=== PATIENT | female | born 1965 | race Caucasian/White ===

== ENCOUNTER 2024-03-19 11:47 | Outpatient (REF) | payer OTHER, SELFPAY ==
--- NOTE | ~2024-03-19 | XR_ITS ---
EXAMINATION: XR ANKLE, RIGHT XR TIB/FIB RIGHT XR FOOT RIGHT . CLINICAL INFORMATION: M25.571 - Pain in right ankle and joints of right foot COMPARISON: None available. TECHNIQUE: AP, lateral, and mortise views of the right ankle. 2 views right foot. 2 views right tibia and fibula. FINDINGS: Oblique fracture of the distal fibular metadiaphysis extending to the level of the syndesmosis. Minimal lateral displacement of the distal fragment. No angulation. The mortise is maintained grossly. Talar dome is normal. Suggestion of a medial malleolar transverse fracture. It is nondisplaced if present. No additional fractures seen. Subtalar joints and calcaneus are intact. Moderate sized plantar and small dorsal calcaneal spurs. The right foot demonstrates mild splaying of the first and second metatarsals without evidence of metatarsal fracture. No foot fractures identified. Tarsal bones are intact and aligned. The more proximal tibia and fibula are intact. No proximal fracture. Soft tissue swelling about the ankle, with ankle joint effusion. XR/XR ankle RT min 3V IMPRESSION: 1. Oblique fracture distal fibula extending into the syndesmotic level. Minimal lateral displacement. No angulation. 2. The mortise appears maintained. The talar dome is normal. 3. Equivocal findings of possible subtle nondisplaced medial malleolar fracture. 4. Plantar and dorsal calcaneal spurs. Electronically signed by: Chapo Herrera MD 03/19/2024 02:21 PM [facility] Workstation: [id number]
--- NOTE | ~2024-03-19 | XR_ITS ---
EXAMINATION: XR ANKLE, RIGHT XR TIB/FIB RIGHT XR FOOT RIGHT . CLINICAL INFORMATION: M25.571 - Pain in right ankle and joints of right foot COMPARISON: None available. TECHNIQUE: AP, lateral, and mortise views of the right ankle. 2 views right foot. 2 views right tibia and fibula. FINDINGS: Oblique fracture of the distal fibular metadiaphysis extending to the level of the syndesmosis. Minimal lateral displacement of the distal fragment. No angulation. The mortise is maintained grossly. Talar dome is normal. Suggestion of a medial malleolar transverse fracture. It is nondisplaced if present. No additional fractures seen. Subtalar joints and calcaneus are intact. Moderate sized plantar and small dorsal calcaneal spurs. The right foot demonstrates mild splaying of the first and second metatarsals without evidence of metatarsal fracture. No foot fractures identified. Tarsal bones are intact and aligned. The more proximal tibia and fibula are intact. No proximal fracture. Soft tissue swelling about the ankle, with ankle joint effusion. XR/XR tibia fibula RT 2V IMPRESSION: 1. Oblique fracture distal fibula extending into the syndesmotic level. Minimal lateral displacement. No angulation. 2. The mortise appears maintained. The talar dome is normal. 3. Equivocal findings of possible subtle nondisplaced medial malleolar fracture. 4. Plantar and dorsal calcaneal spurs. Electronically signed by: Chapo Herrera MD 03/19/2024 02:21 PM [facility]
--- NOTE | ~2024-03-19 | XR_ITS ---
EXAMINATION: XR ANKLE, RIGHT XR TIB/FIB RIGHT XR FOOT RIGHT . CLINICAL INFORMATION: M25.571 - Pain in right ankle and joints of right foot COMPARISON: None available. TECHNIQUE: AP, lateral, and mortise views of the right ankle. 2 views right foot. 2 views right tibia and fibula. FINDINGS: Oblique fracture of the distal fibular metadiaphysis extending to the level of the syndesmosis. Minimal lateral displacement of the distal fragment. No angulation. The mortise is maintained grossly. Talar dome is normal. Suggestion of a medial malleolar transverse fracture. It is nondisplaced if present. No additional fractures seen. Subtalar joints and calcaneus are intact. Moderate sized plantar and small dorsal calcaneal spurs. The right foot demonstrates mild splaying of the first and second metatarsals without evidence of metatarsal fracture. No foot fractures identified. Tarsal bones are intact and aligned. The more proximal tibia and fibula are intact. No proximal fracture. Soft tissue swelling about the ankle, with ankle joint effusion. XR/XR foot RT min 3V IMPRESSION: 1. Oblique fracture distal fibula extending into the syndesmotic level. Minimal lateral displacement. No angulation. 2. The mortise appears maintained. The talar dome is normal. 3. Equivocal findings of possible subtle nondisplaced medial malleolar fracture. 4. Plantar and dorsal calcaneal spurs. Electronically signed by: Chapo Herrera MD 03/19/2024 02:21 PM [facility] Workstation: [id number]
== END 2024-03-19 11:48 | disposition home or self-care (01) ==
LOC: HO.HMGCX 11:47
PROVIDERS: Visit Provider Nurse Practitioner Family
DX: M25.571 Pain in right ankle and joints of right foot (principal); S82.831A Other fracture of upper and lower end of right fibula, initial encounter for closed fracture; S82.54XA Nondisplaced fracture of medial malleolus of right tibia, initial encounter for closed fracture; W00.0XXA Fall on same level due to ice and snow, initial encounter; Y93.01 Activity, walking, marching and hiking; Y92.69 Other specified industrial and construction area as the place of occurrence of the external cause; Y99.0 Civilian activity done for income or pay; Z02.6 Encounter for examination for insurance purposes
CPT/HCPCS: 73590; 73610; 73630; 99212

== ENCOUNTER 2024-03-19 11:47 | Outpatient (AMB) | payer OTHER, SELFPAY ==
--- NOTE | 2024-03-19 12:02 | AM.OFFWIN_ITS ---
Intake Vital Signs 3 03/19/24 12:08 Height 5 ft 3 in BMI Reason not done Patient refused/unable BP 152/82 H Blood Pressure Location Lt brachial Position Sitting Respiration 14 Pulse 83 Pulse Source Pulse Oximeter Temp 98.5 F Temp Source Oral Pulse Oximetry (%) 97 Oxygen Delivery Method Room Air Intake Visit Reasons: right ankle pain from fall at work Intake Note: Patient complaining of right ankle pain and swollen from fall at work last Sunday morning Patient Tobacco Use Status: Never used Tobacco Allergies No Known Allergies Allergy (Verified 03/19/24 12:02) Do you need a note to return to daycare/school/sports/work: Yes HPI HPI Comments 2 History of Present Illness0 Details The patient is a 58-year-old female presenting with injury-related right ankle pain and swelling following a fall. The injury occurred on March 17 when the patient slipped on ice in the parking lot at her workplace, [employer]. She reportedly twisted her right ankle inward and fell onto her left side. She did not hit her head or lose consciousness. Initially, she was able to get up with assistance by using her vehicle's tire and wheel for support. She attempted to continue working, experiencing significant pain which escalated, leading her to leave work after about an hour. Over the following two days, she noticed swelling and persistent pain in the right ankle, unmitigated by ibuprofen. The pain exacerbation was such that it limited her mobility, necessitating assistance with ambulation through furniture support and subsequently a cane, procured by her boyfriend. The current symptoms include swelling without any numbness or tingling, and increased pain when bearing weight on the affected side. It is noted as the patient's first appointment for this injury. Has been wrapping w/ [employer] at home. - Employment: Works at a [employer] company, [employer]. Discussion Notes I discussed the need for an X-ray to rule out any fractures in the foot and ankle due to the significant swelling and pain following the fall. The importance of immobilizing the affected limb was highlighted, and the patient will be fitted with a lace-up brace to facilitate proper alignment during the healing process. I provided instructions on how to wear the brace and emphasized the need to keep the foot in a 90-degree angle. I also discussed the prescription of an anti-inflammatory pain reliever for enhanced pain management, cautioning against combining it with svfx-emd-cahtrut medications. TAke w/ food. The plan includes sending the patient to a facility for X-ray imaging, with results expected within an hour. Should a fracture be detected, follow-up with an orthopedics team in [place] is advised. I explained that if no fracture is found, we will proceed with conservative management for an ankle sprain. Follow-up will be through a phone call to discuss the X-ray results, and a note will be provided to keep the patient out of work temporarily. Plan - Obtain X-ray of the R foot, ankle, and lower leg to evaluate for potential fractures. - Fit the patient with a lace-up ankle b race to stabilize and support the injured area. - Prescribe an anti-inflammatory pain re liever to manage symptoms and reduce swelling. - Discuss the possibility of a referral to an informatics specialist in [place] if imaging confirms a fracture. - Provide a note to limit work activitie s to accommodate recovery requirements and prevent further injury. - Coordinate follow-up communication to discuss diagnostic findings and adjust management plan accordingly. Patient was informed and verbally consented to the use of an ambient scribe for clinic note documentation during this visit. Exam: RLE neurovasc intact, PP WNL, Pain with palpation lateral malleolus generalized aspect of the ankle has pain with weight-bearing and with inversion of the ankle joint. She has no pain with palpation over bones in the foot. Abnormalities in the toe. She does have pain along her tib-fib proximal to the ankle. There is 1 area of ecchymosis as you can see in the picture Total time spent caring for the patient today was 45 minutes. This includes time spent before the visit reviewing the chart, time spent during the visit, and time spent after the visit on documentation, reviewing laboratory results, diagnostic imaging, medications, performing a medically necessary evaluation, counseling on diagnoses, care coordination, ordering appropriate tests, ordering appropriate medications, review of tests performed by other providers, reporting test results with the patient, communication with other healthcare providers. Call received results as below. The patient was placed in a boot. Urgent orthopedic referral placed. Oblique fracture of the distal fibular metadiaphysis extending to the level of the syndesmosis. Minimal lateral displacement of the distal fragment. No angulation. The mortise is maintained grossly. Talar dome is normal. Suggestion of a medial malleolar transverse fracture. It is nondisplaced if present. No additional fractures seen. Subtalar joints and calcaneus are intact. Moderate sized plantar and small dorsal calcaneal spurs. The right foot demonstrates mild splaying of the first and second metatarsals without evidence of metatarsal fracture. No foot fractures identified. Tarsal bones are intact and aligned. The more proximal tibia and fibula are intact. No proximal fracture. Soft tissue swelling about the ankle, with ankle joint effusion. XR/XR tibia fibula RT 2V IMPRESSION: 1. Oblique fracture distal fibula extend ing into the syndesmotic level. Minimal lateral displacement. No angulation. 2. The mortise appears maintained. The t alar dome is normal. 3. Equivocal findings of possible subtle nondisplaced medial malleolar fracture. 4. Plantar and dorsal calcaneal spurs. PFSH Social History Patient Tobacco Use Status: Never used Tobacco Physical Exam Vital Signs: Last Vital Signs Temp 98.5 F 03/19/24 12:08 Pulse 83 03/19/24 12:08 Resp 14 03/19/24 12:08 BP 152/82 H 03/19/24 12:08 Pulse Ox 97 03/19/24 12:08 Oxygen Delivery Method Room Air 03/19/24 12:08 Assessment & Plan Assessment & Plan (1) Encounter related to worker's compensation claim: Code(s): Z02.6 - Encounter for examination for insurance purposes (2) Closed right fibular fracture: Comment: Oblique fracture of the distal fibular metadiaphysis extending to the level of the syndesmosis. Minimal lateral displacement of the distal fragment. No angulation. The mortise is maintained grossly. Talar dome is normal. Suggestion of a medial malleolar transverse fracture. It is nondisplaced if present. No additional fractures seen. Subtalar joints and calcaneus are intact. Moderate sized plantar and small dorsal calcaneal spurs. The right foot demonstrates mild splaying of the first and second metatarsals without evidence of metatarsal fracture. No foot fractures identified. Tarsal bones are intact and aligned. The more proximal tibia and fibula are intact. No proximal fracture. Soft tissue swelling about the ankle, with ankle joint effusion. XR/XR tibia fibula RT 2V IMPRESSION: 1. Oblique fracture distal fibula extending into the syndesmotic level. Minimal lateral displacement. No angulation. 2. The mortise appears maintained. The talar dome is normal. 3. Equivocal findings of possible subtle nondisplaced medial malleolar fracture. 4. Plantar and dorsal calcaneal spurs. Code(s): S82.401A - Unspecified fracture of shaft of right fibula, initial encounter for closed fracture Qualifiers: Encounter type: initial encounter Fracture morphology: other fracture Fibula location: distal Qualified Code(s): S82.831A - Other fracture of upper and lower end of right fibula, initial encounter for closed fracture (3) Fractured medial malleolus: Comment: Oblique fracture of the distal fibular metadiaphysis extending to the level of the syndesmosis. Minimal lateral displacement of the distal fragment. No angulation. The mortise is maintained grossly. Talar dome is normal. Suggestion of a medial malleolar transverse fracture. It is nondisplaced if present. No additional fractures seen. Subtalar joints and calcaneus are intact. Moderate sized plantar and small dorsal calcaneal spurs. The right foot demonstrates mild splaying of the first and second metatarsals without evidence of metatarsal fracture. No foot fractures identified. Tarsal bones are intact and aligned. The more proximal tibia and fibula are intact. No proximal fracture. Soft tissue swelling about the ankle, with ankle joint effusion. XR/XR tibia fibula RT 2V IMPRESSION: 1. Oblique fracture distal fibula extending into the syndesmotic level. Minimal lateral displacement. No angulation. 2. The mortise appears maintained. The talar dome is normal. 3. Equivocal findings of possible subtle nondisplaced medial malleolar fracture. 4. Plantar and dorsal calcaneal spurs. Code(s): S82.53XA - Displaced fracture of medial malleolus of unspecified tibia, initial encounter for closed fracture Qualifiers: Encounter type: initial encounter Fracture type: closed Laterality: r ight Fracture alignment: nondisplaced Qualified Code(s): S82.54XA - Nondisplaced fracture of medial malleolus of right tibia, initial encounter for closed fracture (4) Right ankle pain: Code(s): M25.571 - Pain in right ankle and joints of right foot Qualifiers: Chronicity: acute Qualified Code(s): M25.571 - Pain in right ankle and joints of right foot Plan . Orders: Orders 2 XR foot RT min 3V Today M25.571 - Pain in right ankle and joints of right foot, Z02.6 - Encounter for examination for insurance purposes XR tibia fibula RT 2V Today M25.571 - Pain in right ankle and joints of right foot, Z02.6 - Encounter for examination for insurance purposes XR ankle RT min 3V Today M25.571 - Pain in right ankle and joints of right foot, Z02.6 - Encounter for examination for insurance purposes Referrals 2 Orthopedics Referral S82.54XA - Nondisplaced fracture of medial malleolus of right tibia, initial encounter for closed fracture, S82.831A - Other fracture of upper and lower end of right fibula, initial encounter for closed fracture, Z02.6 - Encounter for examination for insurance purposes Medications: New 2 diclofenac sodium 50 mg PO BID PRN 60 tabs 0RF pain Patient Instructions: Patient Instructions - Proceed to the designated location [address] [place] [address] for X-ray imaging. - Wear the provided brace as instructed to immobilize the ankle. - Take the prescribed anti-inflammatory medication with food. - Avoid combining with other dffl-nrf-upiello pain medications. - Follow up via phone call for X-ray results and further instructions regarding work restrictions. - Use the cane to assist with mobility if needed. Coding Level of Care Code Est Pt Level 5 (76773) Diagnoses Encounter related to worker's compensation claim Z02.6 Other closed fracture of distal end of right fibula, initial encounter S82.831A Encounter type: initial encounter Fracture morphology: other fracture Fibula location: distal Closed nondisplaced fracture of medial malleolus of right tibia, initial encounter S82.54XA Encounter type: initial encounter Fracture type: closed Laterality: right Fracture alignment: nondisplaced Acute right ankle pain M25.571 Chronicity: acute
[2024-03-19 12:08] VITALS: BP 152/82; PULSE 83; RESP 14; TEMP 36.9; O2SAT 97
== END 2024-03-19 12:58 | disposition home or self-care (01) ==
LOC: HO.HMCWIW 11:47
PROVIDERS: Visit Provider Nurse Practitioner Family
DX: S82.831A Other fracture of upper and lower end of right fibula, initial encounter for closed fracture (principal); S82.54XA Nondisplaced fracture of medial malleolus of right tibia, initial encounter for closed fracture; Z04.2 Encounter for examination and observation following work accident; M25.571 Pain in right ankle and joints of right foot

== ENCOUNTER → 2024-03-19 13:41 | Outpatient (BNV) | payer OTHER, SELFPAY | PROVIDERS: Visit Provider Radiology Diagnostic Radiology | DX: M25.571 Pain in right ankle and joints of right foot (principal); S82.401A Unspecified fracture of shaft of right fibula, initial encounter for closed fracture | CPT/HCPCS: 73590; 73610; 73630 ==

== ENCOUNTER 2024-03-26 08:22 | Outpatient (REF) | payer OTHER, SELFPAY ==
--- NOTE | ~2024-03-26 | XR_ITS ---
EXAMINATION: XR ANKLE, RIGHT CLINICAL INFORMATION: M25.571 - Pain in right ankle and joints of right foot COMPARISON: 03/19/2024. TECHNIQUE: AP, lateral, and mortise views of the right ankle. FINDINGS: Oblique fracture of the distal fibular metadiaphysis is unchanged, extending to level of syndesmosis. Alignment is stable. No significant displacement, angulation, or override. No obvious changes of healing at this time. The mortise remains intact. Talar dome remains normal. No additional fractures identified. Moderate size plantar calcaneal spur and small dorsal spur. Stable lateral and anterior soft tissue swelling. XR/XR ankle RT min 3V IMPRESSION: Stable oblique fracture distal fibular metadiaphysis minimal displacement. No change. Electronically signed by: Chapo Herrera MD 03/26/2024 09:06 AM [facility]
== END 2024-03-26 08:23 | disposition home or self-care (01) ==
LOC: HO.HOSX 08:22
PROVIDERS: Visit Provider Physician Assistant
DX: S82.831A Other fracture of upper and lower end of right fibula, initial encounter for closed fracture (principal)
CPT/HCPCS: 73610

== ENCOUNTER 2024-03-26 08:48 | Outpatient (AMB) | payer OTHER, SELFPAY ==
--- NOTE | 2024-03-26 09:06 | MHC.OFFVIS ---
Intake Visit Reasons: FC - WC RT fx distal fibula Intake Note: Luis Matute is a 58 year old female who presents today for a fracture care visit for her right ankle fracture. Patient reports that she fell at work on 03/17/24. She was seen at the [facility] on 03/19/24 as she was having continued pain of the right ankle. She was placed in a tall walking boot at the walk in clinic. Currently, patient reports that she is having continued pain of the right ankle. She was not given crutches at the walk in center so she has been weight bearing with a cane. She has discoloration/bruising. Denies numbness and tingling. Allergies No Known Allergies Allergy (Verified 03/19/24 12:02) Medication List - Last Reconciled 03/26/24 by Parrish Bai PA-C diclofenac sodium 50 mg PO BID PRN HPI HPI FC - WC RT fx distal fibula: Details: 58-year-old female presents to the office today for an injury she sustained to her right ankle at work on 03/17/2024. She states she was walking outside when she slipped on ice and fell. She thought she sprained the ankle however the next couple of days as her pain worsened she presented to urgent care where x-rays were obtained and she was found to have a distal fibular fracture. She was placed in a boot and has been weight-bearing as tolerated. She presents today for an orthopedic evaluation. She states the pain is significant when she is ambulating. [facility] Surgical History (Updated 03/26/24 @ 09:08 by Kenisha Sher [facility]) Previous section Social History Patient Tobacco Use Status: Never used Tobacco Review of Systems Const All systems reviewed & are unremarkable except as noted in HPI and below Physical Exam Const General: cooperative and no acute distress Orientation/consciousness: patient oriented x3 HEENT Head: Yes normal to inspection, Yes normocephalic and Yes atraumatic Eyes General: appearance normal, both eyes and all related structures Neck Neck: Yes normal visual inspection and Yes no lymphadenopathy Resp Effort & Inspection: normal respiratory effort and able to speak in complete sentences Cardio Rate: regular rate Peripheral pulses: Peripheral pulses 2+ throughout GI Inspection: Yes normal to inspection Palpation (GI): Soft to palpation Skin General skin exam: no rashes or lesions noted Neuro General: patient oriented x3 Extrem Other: Right ankle normal to inspection with mild swelling throughout the foot and ankle. She has significant tenderness over the lateral aspect of the ankle into the syndesmosis. Pulses are present sensation intact. Psych Appearance: grossly normal Mental Status: mental status grossly normal Results Reviewed Results Reviewed: X-rays of the right ankle obtained in the office today show distal fibular fracture Assessment & Plan Assessment & Plan (1) Closed right fibular fracture: Code(s): S82.401A - Unspecified fracture of shaft of right fibula, initial encounter for closed fracture Category: Medical Qualifiers: Encounter type: initial encounter Fibula location: distal Fracture morphology: other fracture Qualified Code(s): S82.831A - Other fracture of upper and lower end of right fibula, initial encounter for closed fracture Plan: I discussed the case with Abhi. I discussed the extent of the injury to the patient and options available. Given the extent of the fracture pattern and high risk of further displacement, it is recommended that we surgically fix this to help with stability and restoring anatomy. I explained to the patient the procedure in detail along with the risks benefits and alternatives. Risks including but not limited to infection, wound breakdown, stiffness, on going pain, nonunion or malunion, and possible complications with hardware. She does understand all this and would like to proceed with open reduction internal fixation of the right ankle with Dr. Moe. She was given crutches at today's visit and will remain nonweightbearing. She will wear her boot she was given from the urgent care until the day of surgery. She will be booked accordingly. Orders: Orders XR ankle RT min 3V Today M25.571 - Pain in right ankle and joints of right foot Medications: New acetaminophen 650 mg (2 x 325 mg) PO Q4-6H PRN 240 tabs 0RF fever or pain 30 days tramadol 50 mg PO BEDTIME 7 tabs 0RF 7 days Coding Level of Care Code New Pt Level 4 (85658) Complex EM visit Add On G2211 Diagnoses Other closed fracture of distal end of right fibula, initial encounter S82.831A Encounter type: initial encounter Fibula location: distal Fracture morphology: other fracture
== END 2024-03-26 09:40 | disposition home or self-care (01) ==
PROVIDERS: Visit Provider Physician Assistant
DX: S82.831A Other fracture of upper and lower end of right fibula, initial encounter for closed fracture (principal); W00.0XXA Fall on same level due to ice and snow, initial encounter; Z04.2 Encounter for examination and observation following work accident
CPT/HCPCS: 99204; G2211

== ENCOUNTER → 2024-03-26 08:50 | Outpatient (BNV) | payer OTHER, SELFPAY | PROVIDERS: Visit Provider Radiology Diagnostic Radiology | DX: S82.431D Displaced oblique fracture of shaft of right fibula, subsequent encounter for closed fracture with routine healing (principal); M25.571 Pain in right ankle and joints of right foot | CPT/HCPCS: 73610 ==

== ENCOUNTER 2024-03-28 10:52 | Day surgery (SDC) | payer OTHER, SELFPAY ==
--- NOTE | 2024-03-27 10:49 | HO.ANESPROP2 ---
Documented by User: Giana Martinez NP 03/27/24 10:49 HPI - Anesthesia Eval Consult details Narrative: 58yo F for Right Ankle Fracture ORIF PMFSH Active Problems Active Problems: All Active Problems Fractured medial malleolus (Acute) Closed right fibular fracture (Acute) Right ankle pain (Acute) Encounter related to worker's compensation claim (Acute) Past Medical History Medical History (Updated 03/28/24 @ 11:51 by Barbi Ames RN) No pertinent past medical history Surgical History Surgical History Previous section Social History Social History Household Members Other:: S.O. children Patient Tobacco Use Status: Never used Tobacco Have you been hit, kicked, punched, or otherwise hurt by someone within the past year? If so, by whom?: No Are you DNR?: No Advance Directives: No Advance Directives Information Provided: Yes Recently lost weight without trying: No Nutrition Risks: No Nutritional Risk Meds Allergies Allergy/AdvReac Type Severity Reaction Status Date / Time No Known Allergies Allergy Verified 03/28/24 11:52 Assessment and Plan Assessment Anesthesia Assessment: Chart Reviewed Documented by User: Christa Issa MD 03/28/24 12:11 PMF Past Medical History Medical History (Updated 03/28/24 @ 11:51 by Barbi Ames RN) No pertinent past medical history Family History Family history of problems with anesthesia: No Surgical History Surgical History Previous section History of Problems with Anesthesia: No Social History Social History Household Members Other:: S.O. children Patient Tobacco Use Status: Never used Tobacco Have you been hit, kicked, punched, or otherwise hurt by someone within the past year? If so, by whom?: No Are you DNR?: No Advance Directives: No Advance Directives Information Provided: Yes Recently lost weight without trying: No Nutrition Risks: No Nutritional Risk Meds Allergies Allergy/AdvReac Type Severity Reaction Status Date / Time No Known Allergies Allergy Verified 03/28/24 11:52 Exam Airway Mallampati Class: II (missing top 2 front teeth left) TM Dist: >3cm Neck ROM: Full Heart: rrr Lungs: cta Assessment and Plan Assessment Anesthesia Assessment: Anesthesia Plan Discussed Final Anesthetic Review Family History of Problems with Anesthesia: No History of Problems with Anesthesia: No NPO: Yes ASA Class: III Final Preanesthetic Review: No Changes in Pt Med Stat, Meds/Allgs Chart Reviewed and Consent Obtained/Reviewed Patient Risk: Intermediate Procedure Risk: Low Anesthetic Plan Anesthetic Plan: GA and Regional Block Disposition: Standard PACU
--- NOTE | ~2024-03-28 | FL_ITS ---
EXAMINATION: FL GUIDANCE ONLY HISTORY: right ankle ORIF COMPARISON: Correlation is made with plain films of the right ankle dated 03/26/2024. TECHNIQUE: Fluoroscopy time: 0.1 minutes. Cumulative Dose: 0.346 mGy. DAP: 0.006 mGym2 Images: 4. FINDINGS: Images demonstrate internal fixation of the distal fibula with a sideplate and multiple orthopedic screws. A button is seen along the medial malleolus. FL/FL guidance in OR IMPRESSION: Fluoroscopy during procedure. Please see procedure report for additional information. Electronically signed by: Matthew Rayo MD 03/28/2024 04:25 PM [facility]
[2024-03-28 11:24] VITALS: BMI 42.2
[2024-03-28] MEDS: Lactated Ringers 1,000 ML 100 ML IVCONT (11:37)
[2024-03-28 11:50] VITALS: BP 150/82; PULSE 96; RESP 18; TEMP 36.7; O2SAT 99
--- NOTE | 2024-03-28 11:59 | MHC.SHP ---
Pre-Procedural Eval Section A - 24 Hr Update-Section A only Date of Service: 03/28/24 The patient is an INPATIENT: No Changes since office visit: No Cold of Flu in the past 2 weeks, No New Medical Problems, No Changes in Medication and No Patient answered all questions The patient has been examined within 24 hours of the surgical procedure. The History & Physical has been completed within 30 days and I have reviewed it.: Yes Section B - Complete if H&P > 30 days Chief Complaint: Displaced bimalleolar fracture of left lower leg, Allergies: Allergies Allergy/AdvReac Type Severity Reaction Status Date / Time No Known Allergies Allergy Verified 03/28/24 11:52 Plan I have reviewed the history and physical and performed a pertinent physical examination on my patient. No changes have occurred unless specified. Time Spent With Patient Time: Total time managing care of this patient today ____ minutes.
--- NOTE | 2024-03-28 13:17 | PC.NURSE ---
Vanessa Ames RN to speak with IT to address population of left leg to 24 hour report part B as reviewed by surgeon, myself and her. Dr. Moe added addendum to 24 hour report to show right ankle ORIF to match H&P and consent for today's procedure.
[2024-03-28 14:40] VITALS: BP 141/71; PULSE 82; RESP 16; TEMP 36.3; O2SAT 95
[2024-03-28 14:45] VITALS: BP 122/79; PULSE 86; RESP 16; O2SAT 95
[2024-03-28 14:50] VITALS: BP 132/78; PULSE 86; RESP 16; O2SAT 95
[2024-03-28 14:55] VITALS: BP 115/81; PULSE 89; RESP 16; O2SAT 95
--- NOTE | 2024-03-28 17:05 | PM.OP ---
Brief Operative Note Date of Service: 03/28/24 Pre-op diagnosis: right ankle fracture Post-op diagnosis: same Procedure: ORIF lateral mal ORIF syndesmosis Implants: [place] Pange anterolateral 4 hole plate with Syndesmosis Cinchfix x 1 Surgeon: Milton Moe MD Anesthesia: GLMA and regional Was an Senior Games Technician used for this Procedure?: Yes Senior Games Technician: Amy Miranda Estimated blood loss (mL): 25 Tourniquet time (min): 40 IV fluids (mL): 800 Pathology: none sent Condition: stable Disposition: PACU
--- NOTE | 2024-04-04 11:22 | P.OP_ITS ---
Operative Note Operative Note Date of Service: 03/28/24 Narrative: Date of Service: 03/28/24 Pre-op diagnosis: right ankle fracture Post-op diagnosis: same Procedure: ORIF lateral mal ORIF syndesmosis Implants: [place] Pange anterolateral 4 hole plate with Syndesmosis Cinchfix x 1 Surgeon: Milton Moe MD Anesthesia: GLMA and regional Was an Staff Research Scientist used for this Procedure?: Yes Staff Research Scientist: Amy Miranda Estimated blood loss (mL): 25 Tourniquet time (min): 40 IV fluids (mL): 800 Pathology: none sent Condition: stable Disposition: PACU Procedure in detail: Patient was brought to the operating room and placed supine on the operative table. All bony prominences were well padded and a time-out was called to identify proper site proper procedure proper surgeon. IV antibiotics per weight were administered. I began by exsanguinating limb is slightly tourniquet to 300 mm Hg. I then made a standard posterolateral incision over the fibula. Full- thickness flaps were taken down to the fibular shaft and distal fibula. The fracture was identified and cleaned with a combination of curette, rongeur and irrigation. A lobster claw was used to provisionally reduce the fracture and a 4 hole distal fibular locking plate (Pangea, [place]) was applied using standard AO technique. Biplanar fluoroscopy was used to confirm hardware position and fracture reduction. Once I was satisfied that both of these were acceptable I irrigated copiously and turned my attention to the syndesmosis. The syndesmosis was tested using external rotation test and was found to be unstable with medial space opening > 5mm. Therefore a [place] Cinch-fix was applied from lateral to medial at an angle of approximately 20deg from posterior to anterior. A lucy incision was made medially and the button attached. This was tightened through the plate and the syndesmosis was retested and found to be stable. Therefore all instrumentation was removed and copious irrigation was performed. Absorbable suture and natali were used for closure and the patient was placed into sterile dressings and a well-padded posterior splint. Tourniquet was let down and the patient was extubated brought to recovery room in stable condition there were no known complications.
== END 2024-03-28 15:27 | disposition home or self-care (01) ==
PROVIDERS: Visit Provider Orthopaedic Surgery
PROC: (CPT 27792; principal; 2024-03-28 13:30)
DX: S82.831A Other fracture of upper and lower end of right fibula, initial encounter for closed fracture (principal); M25.571 Pain in right ankle and joints of right foot; R26.2 Difficulty in walking, not elsewhere classified; W00.0XXA Fall on same level due to ice and snow, initial encounter; Y93.01 Activity, walking, marching and hiking; Y92.69 Other specified industrial and construction area as the place of occurrence of the external cause; Y99.8 Other external cause status
CPT/HCPCS: 27792; 27829; C1713; J0131; J0665; J0690; J1100; J2003; J2250; J2371; J2405; J2704; J3010

== ENCOUNTER → 2024-03-28 10:52 | Outpatient (BNV) | payer OTHER, SELFPAY | PROVIDERS: Visit Provider Orthopaedic Surgery | DX: S82.891A Other fracture of right lower leg, initial encounter for closed fracture (principal) | CPT/HCPCS: 27792 ==

== ENCOUNTER 2024-04-04 10:31 | Outpatient (AMB) | payer OTHER, SELFPAY ==
--- NOTE | 2024-04-04 10:33 | MHC.OFFVIS ---
Intake Visit Reasons: PO-Rt Ankle ORIF 03/28/24 Intake Note: Luis is a 58 year old female who presents today with her for a post op appointment s/p Rt Ankle lateral mal/syndesmosis ORIF 03/28/24 NE. Patient reports she had a fall the day of surgery when she was trying to get into her home using her crutches. Splint was taken down and foot was cleaned. Allergies No Known Allergies Allergy (Verified 04/04/24 10:33) HPI HPI PO-Rt Ankle ORIF 03/28/24: Details: Ms. Jansen is a 58-year-old female who presents to the office today status post right ankle ORIF performed on 03/28/[address] Moe for a wound check. Patient has been placed into a posterior splint. She reports that her pain has been managed. She has no additional complaints at this time. She did report however that she did have a fall while trying to get into her house after surgery. She denies landing on the right lower extremity or re-injuring the right lower extremity during the fall. [facility] Medical History (Updated 04/04/24 @ 12:21 by Amy Miranda PA-C) No pertinent past medical history Surgical History (Updated 04/04/24 @ 12:21 by Amy Miranda PA-C) Previous section Social History Household Members Other:: S.O. children Patient Tobacco Use Status: Never used Tobacco Review of Systems Const All systems reviewed & are unremarkable except as noted in HPI and below Physical Exam Const General: cooperative, healthy appearing and no acute distress Resp Effort & Inspection: normal respiratory effort and able to speak in complete sentences Cardio Rate: regular rate Peripheral pulses: Peripheral pulses 2+ throughout Skin Lesions: no lesions Rashes: no rashes Extrem Other: Incision sites are clean dry and intact. Cuney intact. No surrounding erythema or drainage. No signs of infection. Skin is intact. Able to slightly dorsiflex and plantar flex. Sensation is intact. Pedal pulse intact. Office Procedures Casting/Splints 22551-[id number] Leg splint application Procedure code (CPT) selection complete Assessment & Plan Assessment & Plan (1) Fractured medial malleolus: Code(s): S82.53XA - Displaced fracture of medial malleolus of unspecified tibia, initial encounter for closed fracture Category: Medical Qualifiers: Encounter type: initial encounter Fracture type: closed Fracture alignment: nondisplaced Laterality: right Qualified Code(s): S82.54XA - Nondisplaced fracture of medial malleolus of right tibia, initial encounter for closed fracture (2) Closed right fibular fracture: Code(s): S82.401A - Unspecified fracture of shaft of right fibula, initial encounter for closed fracture Category: Medical Qualifiers: Encounter type: initial encounter Fibula location: distal Fracture morphology: other fracture Qualified Code(s): S82.831A - Other fracture of upper and lower end of right fibula, initial encounter for closed fracture (3) Status post ORIF of fracture of ankle: Code(s): Z98.890 - Other specified postprocedural states; Z87.81 - Personal history of (healed) traumatic fracture Category: Surgical Plan Ms. Jansen is a 58-year-old female who presents to the office today status post right ankle ORIF performed on 03/28/[address] Moe for a wound check. Patient has been placed into a posterior splint. She reports that her pain has been managed. She has no additional complaints at this time. She did report however that she did have a fall while trying to get into her house after surgery. She denies landing on the right lower extremity or re-injuring the right lower extremity during the fall. While the office today, a skin check was performed. There are no signs of infection or skin breakdown at this time. Natali remain intact for another week. She was placed back into a custom molded posterior splint and instructed to non weightbear until her follow up in 1 week with x-rays. At that appointment I anticipate that natali are to be removed and she will be placed into a short-leg cast or continue to be nonweightbearing for additional 4 weeks. Her follow-up is 1 week, sooner if needed. Coding Level of Care Code Global (04420) Diagnoses Closed nondisplaced fracture of medial malleolus of right tibia, initial encounter S82.54XA Encounter type: initial encounter Fracture type: closed Fracture alignment: nondisplaced Laterality: right Other closed fracture of distal end of right fibula, initial encounter S82.831A Encounter type: initial encounter Fibula location: distal Fracture morphology: other fracture Status post ORIF of fracture of ankle Z98.890; Z87.81 CPT Codes Splint - CPT: 61785-Dwccr Leg splint application ([id number])
== END 2024-04-04 11:43 | disposition home or self-care (01) ==
PROVIDERS: Visit Provider Physician Assistant
DX: S82.54XA Nondisplaced fracture of medial malleolus of right tibia, initial encounter for closed fracture (principal); S82.831A Other fracture of upper and lower end of right fibula, initial encounter for closed fracture; Z98.890 Other specified postprocedural states; Z87.81 Personal history of (healed) traumatic fracture
CPT/HCPCS: 29515; 99024

== ENCOUNTER → 2024-04-04 10:31 | Outpatient (BNVA) | payer OTHER, SELFPAY | PROVIDERS: Visit Provider Physician Assistant | DX: S82.53XD Displaced fracture of medial malleolus of unspecified tibia, subsequent encounter for closed fracture with routine healing (principal); S82.831D Other fracture of upper and lower end of right fibula, subsequent encounter for closed fracture with routine healing | CPT/HCPCS: 29515; 99212 ==

== ENCOUNTER 2024-04-11 07:15 | Outpatient (REF) | payer OTHER, SELFPAY ==
--- NOTE | ~2024-04-11 | XR_ITS ---
EXAMINATION: XR ANKLE 3 OR MORE VIEWS RIGHT HISTORY: M25.579 - Pain in unspecified ankle and joints of unspecified foot COMPARISON: Comparison is made with the prior examination dated 03/26/2024. FINDINGS: Three views of the right ankle are submitted. Osseous mineralization is normal. The patient is status post internal fixation of the previously noted oblique fracture of the distal fibula with a sideplate and multiple orthopedic screws. A button is also seen along the medial tibial metaphysis. A subtle lucency is again noted in the medial malleolus which could represent a nondisplaced fracture. The joint spaces are preserved. The soft tissues are unremarkable. XR/XR ankle RT min 3V IMPRESSION: Internal fixation of the previously seen oblique fracture of the distal fibula. A subtle lucency is again seen in the medial malleolus which could represent a nondisplaced fracture. Electronically signed by: Matthew Rayo MD 04/14/2024 08:56 AM [facility]
== END 2024-04-11 07:16 | disposition home or self-care (01) ==
LOC: HO.HOSX 07:15
PROVIDERS: Visit Provider Physician Assistant
DX: M25.571 Pain in right ankle and joints of right foot (principal); S82.831A Other fracture of upper and lower end of right fibula, initial encounter for closed fracture; S82.54XA Nondisplaced fracture of medial malleolus of right tibia, initial encounter for closed fracture; W01.0XXA Fall on same level from slipping, tripping and stumbling without subsequent striking against object, initial encounter; Y93.01 Activity, walking, marching and hiking; Y92.009 Unspecified place in unspecified non-institutional (private) residence as the place of occurrence of the external cause; Y99.9 Unspecified external cause status; Z98.890 Other specified postprocedural states; Z87.81 Personal history of (healed) traumatic fracture
CPT/HCPCS: 29405; 73610; 99212

== ENCOUNTER 2024-04-11 11:11 | Outpatient (AMB) | payer OTHER, SELFPAY ==
--- NOTE | 2024-04-11 11:34 | A.OFFVIS_ITS ---
Intake Visit Reasons: PO-Rt Ankle ORIF 03/28/24-1 WK follow up Intake Note: Luis is a 58 year old female who presents today with her for a post op appointment s/p Rt Ankle lateral mal/syndesmosis ORIF 03/28/24 NE. Patient reports she had a fall the day of surgery when she was trying to get into her home using her crutches. Splint was taken down and foot was cleaned. Allergies No Known Allergies Allergy (Verified 04/11/24 11:35) HPI HPI PO-Rt Ankle ORIF 03/28/24-1 WK follow up: Details: Ms. Jansen is a 58-year-old female who presents to the office today status post right ankle ORIF performed on 03/28/[address] Moe. Overall the patient is doing very well. She does report that the day of surgery she did fall after losing her balance while trying to navigate in the house. Her pain is controlled and she has no additional complaints at this time. [facility] Medical History (Updated 04/04/24 @ 12:21 by Amy Miranda PA-C) No pertinent past medical history Surgical History (Updated 04/04/24 @ 12:21 by Amy Miranda PA-C) Previous section Social History Household Members Other:: S.O. children Patient Tobacco Use Status: Never used Tobacco Review of Systems Const All systems reviewed & are unremarkable except as noted in HPI and below Physical Exam Extrem Other: Right ankle incision sites are clean dry and intact. Natali intact. No surrounding erythema or drainage. No signs of infection. Able to slightly dorsiflex and plantar flex. Pedal pulse intact. Sensation intact. Office Procedures Casting/Splints 65052-[id number] Leg Cast Application Procedure code (CPT) selection complete Assessment & Plan Assessment & Plan (1) Status post ORIF of fracture of ankle: Code(s): Z98.890 - Other specified postprocedural states; Z87.81 - Personal history of (healed) traumatic fracture Category: Surgical (2) Closed right fibular fracture: Code(s): S82.401A - Unspecified fracture of shaft of right fibula, initial encounter for closed fracture Category: Medical Qualifiers: Encounter type: initial encounter Fibula location: distal Fracture morphology: other fracture Qualified Code(s): S82.831A - Other fracture of upper and lower end of right fibula, initial encounter for closed fracture (3) Fractured medial malleolus: Code(s): S82.53XA - Displaced fracture of medial malleolus of unspecified tibia, initial encounter for closed fracture Category: Medical Qualifiers: Encounter type: initial encounter Fracture type: closed Fracture alignment: nondisplaced Laterality: right Qualified Code(s): S82.54XA - Nondisplaced fracture of medial malleolus of right tibia, initial encounter for closed fracture Plan Ms. Jansen is a 58-year-old female who presents to the office today status post right ankle ORIF performed on 03/28/[address] Moe. Overall the patient is doing very well. She does report that the day of surgery she did fall after losing her balance while trying to navigate in the house. Her pain is controlled and she has no additional complaints at this time. While in the office today, the patient's natali were removed and Steri-Strips were applied. She was transitioned to a short-leg cast that was custom molded to her. She will continue nonweightbearing. I would like to see her back in 4 weeks with cast off and repeat x-rays, sooner if needed. Patient was educated on cast maintenance and instructed to keep the cast clean, dry, and intact. However, should the cast become wet, dirty, damaged, or there are any concerns please call the office immediately for a cast change. X-rays of the right ankle which were obtained while in the office today and were reviewed by me, Amy Miranda PA-C, revealed intact orthopedic hardware with routine healing. Orders: Orders XR ankle RT min 3V Today M25.579 - Pain in unspecified ankle and joints of unspecified foot Coding Level of Care Code Global (81140) Diagnoses Status post ORIF of fracture of ankle Z98.890; Z87.81 Other closed fracture of distal end of right fibula, initial encounter S82.831A Encounter type: initial encounter Fibula location: distal Fracture morphology: other fracture Closed nondisplaced fracture of medial malleolus of right tibia, initial encounter S82.54XA Encounter type: initial encounter Fracture type: closed Fracture alignment: nondisplaced Laterality: right CPT Codes Casting - CPT: 66129-Zhqae Leg Cast Application ([id number])
== END 2024-04-11 12:21 | disposition home or self-care (01) ==
PROVIDERS: Visit Provider Physician Assistant
DX: S82.831D Other fracture of upper and lower end of right fibula, subsequent encounter for closed fracture with routine healing (principal); S82.54XD Nondisplaced fracture of medial malleolus of right tibia, subsequent encounter for closed fracture with routine healing
CPT/HCPCS: 29405; 99024

== ENCOUNTER → 2024-04-11 11:17 | Outpatient (BNV) | payer OTHER, SELFPAY | PROVIDERS: Visit Provider Radiology Diagnostic Radiology | DX: M25.571 Pain in right ankle and joints of right foot (principal) | CPT/HCPCS: 73610 ==

== ENCOUNTER 2024-05-09 08:27 | Outpatient (REF) | payer OTHER, SELFPAY ==
--- NOTE | ~2024-05-09 | XR_ITS ---
EXAMINATION: XR ANKLE 3 OR MORE VIEWS RIGHT HISTORY: M25.579 - Pain in unspecified ankle and joints of unspecified foot COMPARISON: Comparison is made with the prior examination dated 04/03/2024. FINDINGS: Three views of the right ankle are submitted. Osseous mineralization is normal. The patient is again noted to be status post internal fixation of a fracture of the distal fibula. The fracture line is well visualized. A button is again noted along the medial tibial metaphysis. The previously seen possible nondisplaced fracture of the medial malleolus is less well visualized which may be due to obliquity. The joint spaces are preserved. The soft tissues are unremarkable. XR/XR ankle RT min 3V IMPRESSION: Internal fixation of the distal fibula without change. The previously seen possible nondisplaced fracture of the medial malleolus is less well visualized. Electronically signed by: Matthew Rayo MD 05/09/2024 12:58 PM EDT
== END 2024-05-09 08:28 | disposition home or self-care (01) ==
LOC: HO.HOSX 08:27
PROVIDERS: Visit Provider Physician Assistant
DX: M25.572 Pain in left ankle and joints of left foot (principal); Z98.890 Other specified postprocedural states; Z87.81 Personal history of (healed) traumatic fracture
CPT/HCPCS: 73610; 99212

== ENCOUNTER 2024-05-09 10:30 | Outpatient (AMB) | payer OTHER, SELFPAY ==
--- NOTE | 2024-05-09 10:48 | MHC.OFFVIS ---
Intake Visit Reasons: PO-Rt Ankle ORIF 03/28/24-Cast off W XR Intake Note: Sheri is a 58 year old female who presents today for a post operative appointment about 6 weeks s/p Right Ankle ORIF 03/28/24. Patient reported a fall the day of her surgery. Cast off and XR updated today in office. Patient reports that she is doing well Allergies No Known Allergies Allergy (Verified 04/11/24 11:35) HPI HPI PO-Rt Ankle ORIF 03/28/24-Cast off W XR: Details: Ms. Jansen is a 58-year-old female who presents the office today status post right ankle ORIF performed on 03/28/[address] Moe. Cast was removed in the office today repeat x-rays were obtained. Overall the patient is doing very well and does not complain of any pain or discomfort. [facility] Medical History (Updated 04/04/24 @ 12:21 by Amy Miranda PA-C) No pertinent past medical history Surgical History (Updated 04/04/24 @ 12:21 by Amy Miranda PA-C) Previous section Social History Household Members Other:: S.O. children Patient Tobacco Use Status: Never used Tobacco Review of Systems Const All systems reviewed & are unremarkable except as noted in HPI and below Physical Exam Const General: cooperative, healthy appearing and no acute distress Resp Effort & Inspection: normal respiratory effort and able to speak in complete sentences Cardio Rate: regular rate Peripheral pulses: Peripheral pulses 2+ throughout Skin Lesions: no lesions Rashes: no rashes Extrem Other: Right ankle incision sites are clean dry and intact covered with Steri-Strips. No surrounding erythema or drainage. No signs of infection. Patient is able to dorsiflex and plantar flex with mild stiffness. She is able to pronate and supination with more stiffness and difficulty. Sensation is intact. Pedal pulse intact. Assessment & Plan Assessment & Plan (1) Status post ORIF of fracture of ankle: Code(s): Z98.890 - Other specified postprocedural states; Z87.81 - Personal history of (healed) traumatic fracture Category: Surgical Plan Ms. Jansen is a 58-year-old female who presents the office today status post right ankle ORIF performed on 03/28/[address] Moe. Cast was removed in the office today repeat x-rays were obtained. Overall the patient is doing very well and does not complain of any pain or discomfort. While in the office today, the patient was placed back into the tall walking boot that was previously provided to her by the emergency department. She may begin to weight bear as tolerated. I have also placed an order for physical therapy to work on range of motion. The goal is to discontinue the boot in the next 6 weeks. I would like to see her back in 6 weeks with repeat x-rays, sooner if needed. X-rays of the right ankle which were obtained while in the office today and were reviewed by me, Amy Miranda PA-C, revealed intact orthopedic hardware with routine healing. Orders: Orders XR ankle RT min 3V Today M25.579 - Pain in unspecified ankle and joints of unspecified foot XR ankle RT min 3V Today M25.579 - Pain in unspecified ankle and joints of unspecified foot Coding Level of Care Code Global (24390) Diagnoses Status post ORIF of fracture of ankle Z98.890; Z87.81
== END 2024-05-09 12:07 | disposition home or self-care (01) ==
LOC: HO.HOS 10:30
PROVIDERS: Visit Provider Physician Assistant
DX: Z98.890 Other specified postprocedural states (principal); Z87.81 Personal history of (healed) traumatic fracture
CPT/HCPCS: 99024

== ENCOUNTER → 2024-05-09 10:39 | Outpatient (BNV) | payer OTHER, SELFPAY | PROVIDERS: Visit Provider Radiology Diagnostic Radiology | DX: S82.54XA Nondisplaced fracture of medial malleolus of right tibia, initial encounter for closed fracture (principal) | CPT/HCPCS: 73610 ==

== ENCOUNTER 2024-06-20 10:04 | Outpatient (REF) | payer OTHER, SELFPAY ==
--- NOTE | ~2024-06-20 | XR_ITS ---
CLINICAL HISTORY: M25.579 - Pain in unspecified ankle and joints of unspecified foot Exam: AP, lateral, and mortise views of the right ankle. Comparison: May 09, 2024. Findings: Lateral plate and screw device is again seen over the distal fibula. Single syndesmotic screw with small metallic plates of the base of the medial malleolus. Unchanged appearance of healing fracture deformity of the medial malleolus. No new fractures are identified. Ankle mortise is intact. Prominent spurring of the posterior and plantar calcaneus. Impression: Unchanged exam. This document has been electronically signed by: Chris Whyte MD on 06/22/2024 06:55:30
== END 2024-06-20 10:05 | disposition home or self-care (01) ==
LOC: HO.HOSX 10:04
PROVIDERS: Visit Provider Physician Assistant
DX: M25.571 Pain in right ankle and joints of right foot (principal); Z98.890 Other specified postprocedural states; Z87.81 Personal history of (healed) traumatic fracture
CPT/HCPCS: 73610; 99212

== ENCOUNTER 2024-06-20 11:20 | Outpatient (AMB) | payer OTHER, SELFPAY ==
--- NOTE | 2024-06-20 11:25 | A.OFFVIS_ITS ---
Intake Visit Reasons: PO-Rt Ankle ORIF 03/28/24-w/xray Intake Note: Sheri is a 58 year old female who presents today for a post operative appointment s/p Right Ankle ORIF 03/28/24. At the her last visit patient was placed in a tall walking boot with a referral to physical therapy to work on range of motion and to possibly discontinue the boot. Patient reports she is doing well. She is starting physical therapy is going well but she is feeling very sore after. She mentions that she has been doing her exercises at home as well. Allergies No Known Allergies Allergy (Verified 06/20/24 11:42) HPI HPI PO-Rt Ankle ORIF 03/28/24-w/xray: Details: Ms. Jansen is a 58-year-old female who presents to the office today status post right ankle ORIF performed on 03/28/[address] Moe. Patient has just begun physical therapy and has noticed an increase in pain since performing [id number] exercises. She is out of the boot and into a normal walking shoe. She reports that the incision sites are tender to palpation. She is still using a walker to assist with ambulation. She feels as though she has been deconditioned by this injury. She reports that when she is taking a shower her bilateral lower extremities begin to shake due to weakness. [facility] Medical History (Updated 04/04/24 @ 12:21 by Amy Miranda PA-C) No pertinent past medical history Surgical History (Updated 04/04/24 @ 12:21 by Amy Miranda PA-C) Previous section Social History Household Members Other:: S.O. children Patient Tobacco Use Status: Never used Tobacco Review of Systems Const All systems reviewed & are unremarkable except as noted in HPI and below Physical Exam Const General: cooperative, healthy appearing and no acute distress Resp Effort & Inspection: normal respiratory effort and able to speak in complete sentences Extrem Other: Right ankle incision sites are clean dry and intact. Incision sites are completely healed and well approximated. No surrounding erythema or drainage. No signs of infection. Patient is able to dorsiflex and plantar flex with mild stiffness. She is able to pronate and supination with mild stiffness. Sensation is intact. Pedal pulse intact. Assessment & Plan Assessment & Plan (1) Status post ORIF of fracture of ankle: Code(s): Z98.890 - Other specified postprocedural states; Z87.81 - Personal history of (healed) traumatic fracture Category: Surgical Plan Ms. Jansen is a 58-year-old female who presents to the office today status post right ankle ORIF performed on 03/28/[address] Moe. Patient has just begun physical therapy and has noticed an increase in pain since performing [id number] exercises. She is out of the boot and into a normal walking shoe. She reports that the incision sites are tender to palpation. She is still using a walker to assist with ambulation. She feels as though she has been deconditioned by this injury. She reports that when she is taking a shower her bilateral lower extremities begin to shake due to weakness. While in the office today, I have recommended continuation of physical therapy. The goal is to wean her off of the walker as soon as possible. She will continue working on range of motion and gait training. Once full range of motion is achieved she can progress to strengthening. She will be out of work until follow up. I would like to see her back in 4-6 weeks, sooner if needed. X-rays of the right ankle which were obtained while in the office today and were reviewed by me, Amy Miranda PA-C, revealed healed fracture of distal fibula. Intact orthopedic hardware with no evidence of loosening or failure. Orders: Orders XR ankle RT min 3V Today M25.579 - Pain in unspecified ankle and joints of unspecified foot Coding Level of Care Code Global (83501) Diagnoses Status post ORIF of fracture of ankle Z98.890; Z87.81
== END 2024-06-20 11:47 | disposition home or self-care (01) ==
LOC: HO.HOS 11:20
PROVIDERS: Visit Provider Physician Assistant
DX: Z98.890 Other specified postprocedural states (principal); Z87.81 Personal history of (healed) traumatic fracture
CPT/HCPCS: 99024

== ENCOUNTER → 2024-06-20 11:22 | Outpatient (BNV) | payer OTHER, SELFPAY | PROVIDERS: Visit Provider Radiology Diagnostic Radiology | DX: M25.571 Pain in right ankle and joints of right foot (principal) | CPT/HCPCS: 73610 ==

== ENCOUNTER 2024-07-31 09:06 | Outpatient (REF) | payer OTHER, SELFPAY ==
--- NOTE | ~2024-07-31 | XR_ITS ---
CLINICAL HISTORY: M25.579 - Pain in unspecified ankle and joints of unspecified foot 3 view right ankle Comparison: DX - XR ANKLE RT MIN 3V - 06/20/24 11:22 EDT Findings: Status post open reduction internal fixation for distal fibular fracture. Orthopedic hardware as previously described. Healing fracture of the medial malleolus unchanged. The joint spaces are normal. No ankle effusion. No radiopaque foreign body. There are posterior and plantar calcaneal spurs. IMPRESSION: 1. Status post open reduction internal fixation for distal fibular fracture. Orthopedic hardware as previously described. 2. Healing fracture of the medial malleolus unchanged. This document has been electronically signed by: Keith Nazario MD on 08/01/2024 10:42:08
== END 2024-07-31 09:07 | disposition home or self-care (01) ==
LOC: HO.HOSX 09:06
PROVIDERS: Visit Provider Physician Assistant
DX: M25.571 Pain in right ankle and joints of right foot (principal); Z98.890 Other specified postprocedural states; Z87.81 Personal history of (healed) traumatic fracture
CPT/HCPCS: 73610; 99212

== ENCOUNTER 2024-07-31 10:03 | Outpatient (AMB) | payer OTHER, SELFPAY ==
--- NOTE | 2024-07-31 10:05 | A.OFFVIS_ITS ---
Intake Visit Reasons: OV - right Ankle ORIF 03/28/24 Intake Note: Sheri is a 58 year old female who presents today for a post operative appointment s/p Right Ankle ORIF 03/28/24. At her last visit she was informed to continue physical therapy to work on ROM and strengthening. Patient reports she is doing well. She is feeling very sore after physical therapy. She notices that she is not able to stand for more than 15 mins, the she feels her leg shake and she gets cold sweats. Allergies No Known Allergies Allergy (Verified 07/31/24 10:06) HPI HPI OV - right Ankle ORIF 03/28/24 : Details: Ms. Jansen this is a 58-year-old female who presents to the office today status post right ankle ORIF performed on 03/28/[address] Moe. Overall the patient has been continuing formal physical therapy. She states that she continues to have lateral-sided ankle pain and occasional medial-sided ankle pain. She has difficulty with standing for long periods of time and notices t hat she feels an increase in pain and weakness. After that she states that she starts developing a cold sweat. She has transitioned to a supportive walking shoe. She only has 1 physical therapy appointment left. [facility] Medical History (Updated 04/04/24 @ 12:21 by Amy Miranda PA-C) No pertinent past medical history Surgical History (Updated 04/04/24 @ 12:21 by Amy Miranda PA-C) Previous section Social History Household Members Other:: S.O. children Patient Tobacco Use Status: Never used Tobacco Review of Systems Const All systems reviewed & are unremarkable except as noted in HPI and below Physical Exam Const General: cooperative, healthy appearing and no acute distress Resp Effort & Inspection: normal respiratory effort and able to speak in complete sentences Extrem Other: Right ankle incision sites are clean dry and intact. Incision sites are completely healed and well approximated. No surrounding erythema or drainage. No signs of infection. Slight tenderness to palpation over the lateral plate. Patient is able to dorsiflex and plantar flex with mild stiffness. She is able to pronate and supination with mild stiffness and pain along the lateral malleolus.. Sensation is intact. Pedal pulse intact. Assessment & Plan Assessment & Plan (1) Status post ORIF of fracture of ankle: Code(s): Z98.890 - Other specified postprocedural states; Z87.81 - Personal history of (healed) traumatic fracture Category: Surgical Plan Ms. Jansen this is a 58-year-old female who presents to the office today status post right ankle ORIF performed on 03/28/[address] Moe. Overall the patient has been continuing formal physical therapy. She states that she continues to have lateral-sided ankle pain and occasional medial-sided ankle pain. She has difficulty with standing for long periods of time and notices that she feels an increase in pain and weakness. After that she states that she starts developing a cold sweat. She has transitioned to a supportive walking shoe. She only has 1 physical therapy appointment left. While in the office today, we discussed continuation of physical therapy. A new order has been placed. [facility] and therefore the order has been given to the patient. I would like her to follow up in 8 weeks with repeat x-rays, sooner if needed. She will remain out of work until follow up as she is not able to stand on her feet for any length of time. X-rays of the right ankle which were obtained while in the office today and were reviewed by me, Amy Miranda PA-C, revealed intact orthopedic hardware with routine healing. Orders: Orders PT Evaluation and Treatment Today Z87.81 - Personal history of (healed) traumatic fracture, Z98.890 - Other specified postprocedural states XR ankle RT min 3V Today M25.579 - Pain in unspecified ankle and joints of unspecified foot Coding Level of Care Code Est Pt Level 3 (33532) Diagnoses Status post ORIF of fracture of ankle Z98.890; Z87.81
== END 2024-07-31 11:26 | disposition home or self-care (01) ==
LOC: HO.HOS 10:04
PROVIDERS: Visit Provider Physician Assistant
DX: Z47.89 Encounter for other orthopedic aftercare (principal); S82.431D Displaced oblique fracture of shaft of right fibula, subsequent encounter for closed fracture with routine healing; Z87.81 Personal history of (healed) traumatic fracture
CPT/HCPCS: 99213

== ENCOUNTER → 2024-07-31 10:06 | Outpatient (BNV) | payer OTHER, SELFPAY | PROVIDERS: Visit Provider Radiology Diagnostic Radiology | DX: Z47.89 Encounter for other orthopedic aftercare (principal); Z96.60 Presence of unspecified orthopedic joint implant | CPT/HCPCS: 73610 ==

== ENCOUNTER 2024-09-25 08:46 | Outpatient (REF) | payer OTHER, SELFPAY ==
--- NOTE | ~2024-09-25 | XR_ITS ---
EXAMINATION: XR ANKLE 3 OR MORE VIEWS RIGHT HISTORY: M25.579 - Pain in unspecified ankle and joints of unspecified foot COMPARISON: Comparison is made with the prior examination dated 07/31/2024. FINDINGS: Three views of the right ankle are submitted. Osseous mineralization is normal. The patient is again noted to be status post internal fixation of the distal fibula with a sideplate and multiple orthopedic screws. A nondisplaced fracture of the medial malleolus is unchanged in appearance. The joint spaces are preserved. There is a moderate plantar calcaneal spur.. The soft tissues are unremarkable. XR/XR ankle RT min 3V IMPRESSION: Internal fixation of the distal fibula without change. Nondisplaced fracture of the medial malleolus without change. Electronically signed by: Matthew Rayo MD 09/25/2024 02:00 PM EDT
--- OUTSIDE RECORDS SUMMARY | 2024-09-26 09:04 | XMS_ITS | Encounter Summary ---
Author Organization [facility] Address [address] [facility] [address] [place] [address] Phone Care Team Providers Care Sander Wooden Pencils Name Role Phone Delma Baez Primary Care Provider [phone]- [phone] Reason for Visit * Reason Onset Date Comments No Show 09/03/2024 8:00 appt tomorr ow Encounter Details Date Type Department Care Team (Late st Contact Info) Description 09/03/2024 [address] [facility] [address] [address] Delma Baez [address] [facility], [address] [place] [address] [email or web address] .[email or web address] No Show (8:00 appt tomorrow) Social History [...] high school, GED, job training, learning the Georgian language, technical skills, or developing parenting skills)? [...] can cancel appointments anytime through your [facility]. We appreciate your understanding. Required Scripting for [...] can cancel appointments anytime through your [facility]. documented in this encounter Plan of Treatment Upcoming Encounters Date Type Department Care Team (Late st Contact Info) Description 09/11/2025 8:15 AM EDT Office Visit [facility] [address] [address] Delma Baez [address] [place] [address], [address] [place] [address] [email or web address] documented as of this encounter Visit Diagnoses Not on filedocumented in this encounter Care Teams Sander Wooden Pencils Relationship Specialty Start Date End Date Delma Baez [address] [place] [address], [address] [place] [address] PCP - General Family Medicine 08/05/24 documented as of this encounter Additional Source Comments The information contained in this document represents components of the legal health record. It is not the complete legal health record.[facility]
== END 2024-09-25 08:47 | disposition home or self-care (01) ==
LOC: HO.HOSX 08:46
PROVIDERS: Visit Provider Physician Assistant
DX: M25.571 Pain in right ankle and joints of right foot (principal); Z98.890 Other specified postprocedural states; Z87.81 Personal history of (healed) traumatic fracture
CPT/HCPCS: 73610; 99212

== ENCOUNTER 2024-09-25 11:05 | Outpatient (AMB) | payer OTHER, SELFPAY ==
--- NOTE | 2024-09-25 11:07 | A.OFFVIS_ITS ---
Intake Visit Reasons: OV-right Ankle ORIF 03/28/24 Intake Note: Sheri is a 58 year old female who presents today for a post operative appointment s/p right ankle ORIF DOS 03/28/24 by Milton Moe. At her last visit she was recommend to continue with physical therapy. patient is still having pain in her ankle and on the top of her foot. Patient notices pain with dorsiflexion. She states that her is not able to stand for more than 30 min. Patient is still working with physical therapy. Accompanied by: Spouse Allergies No Known Allergies Allergy (Verified 09/25/24 11:38) HPI HPI OV-right Ankle ORIF 03/28/24: Details: Ms. Jansen is a 58-year-old female who presents to the office today for follow-up status post right ankle ORIF performed on 03/28/[address] Moe. Patient reports that she continues to work with physical therapy but has significant soreness along the anterior aspect of the ankle and the dorsal aspect of the foot. Additionally, she reports some numbness and tingling at the base of all digits excluding the great toe and at her heel. She is using a cane to assist with ambulation. She reports that she is unable to stand for longer than 30 minutes due to pain. Additionally, she reports that she is having weakness and pain that causes her foot to tremble with physical therapy exercises. [facility] Medical History (Updated 04/04/24 @ 12:21 by Amy Miranda PA-C) No pertinent past medical history Surgical History (Updated 04/04/24 @ 12:21 by Amy Miranda PA-C) Previous section Social History Household Members Other:: S.O. children Patient Tobacco Use Status: Never used Tobacco Review of Systems Const All systems reviewed & are unremarkable except as noted in HPI and below Physical Exam Const General: cooperative, healthy appearing and no acute distress Resp Effort & Inspection: normal respiratory effort and able to speak in complete sentences Extrem Other: Right ankle incision sites are clean dry and intact. Incision sites are completely healed and well approximated. No surrounding erythema or drainage. No signs of infection. Continued tenderness to palpation over the lateral plate. Patient is able to dorsiflex and plantar flex with stiffness and pain. She is able to pronate and supination with stiffness and pain along the lateral malleolus.. Sensation is intact. Pedal pulse intact. Assessment & Plan Assessment & Plan (1) Status post ORIF of fracture of ankle: Code(s): Z98.890 - Other specified postprocedural states; Z87.81 - Personal history of (healed) traumatic fracture Category: Surgical Plan Ms. Jansen is a 58-year-old female who presents to the office today for follow-up status post right ankle ORIF performed on 03/28/[address] Moe. Patient reports that she continues to work with physical therapy but has significant soreness along the anterior aspect of the ankle and the dorsal aspect of the foot. Additionally, she reports some numbness and tingling at the base of all digits excluding the great toe and at her heel. She is using a cane to assist with ambulation. She reports that she is unable to stand for longer than 30 minutes due to pain. Additionally, she reports that she is having weakness and pain that causes her foot to tremble with physical therapy exercises. Dr. Moe was available to see the patient with me while in the office today in a collaborative treatment plan was created. Patient continues to have hypersensitivity along the lateral incision site. Additionally, she has stiffness, pain and weakness with dorsiflexion, plantar flexion pronation and supination. Recommendation at this time is to continue with physical therapy and monitor symptoms. Patient will follow up in 8 weeks after continued physical therapy, sooner if needed. X-rays of the right ankle which were obtained while in the office today and were reviewed by me, Amy Miranda PA-C, revealed intact orthopedic hardware with routine healing. Orders: Orders XR ankle RT min 3V Today M25.579 - Pain in unspecified ankle and joints of unspecified foot Coding Level of Care Code Est Pt Level 3 (83844) Diagnoses Status post ORIF of fracture of ankle Z98.890; Z87.81
--- OUTSIDE RECORDS SUMMARY | 2024-09-25 12:14 | XMS_ITS | Encounter Summary ---
Author Organization [facility] Address [address] [facility] [address] [place] [address] Phone Care Team Providers Care Social Work Associate Name Role Phone Delma Baez Primary Care Provider [phone] Reason for Visit * Reason Onset Date Comments No Show 09/03/2024 8:00 appt tomorr ow Encounter Details Date Type Department Care Team (Late st Contact Info) Description 09/03/2024 Telephone [facility] [address] [address] Delma Baez [address] [facility], [address] [place] [address] [email or web address] No Show (8:00 appt tomorrow) Social History Tobacco Use Types Packs/Day Years Used Date Smoking Tobacco: Never Smokeless Tobacco: Never Alcohol Use Standard Drinks/Week Comments Yes 0 (1 standard drink = 0.6 oz pur e alcohol) A few times a year. Child or Family Care Answer Date Record ed Do you have problems with on e of the following making it difficult for you to work, study, or receive health care? No 08/05/2024 Education Answer Date Recorded Are you interested in help w ith more adult education (for example, completing high school, GED, job training, learning the [place] language, technical skills, or developing parenting skills)? No 08/05/2024 Are you concerned about learning? Not on file 08/05/2024 No 08/05/2024 Yes 08/05/2024 Food Answer Date Recorded Within the past 6 months we worried whether our food would run out before we got money to buy more. Never True 08/05/2024 Within the past 6 months the food we bought just didn't last and we didn't have enough money to get more. Never True Residential Stability Answer Date Recor ded What is your housing situation today? I have ginette sing 08/05/2024 How many times have you move d in the past 12 months? Zero (I did not move) 08/05/2024 Paying for Meds Answer Date Recorded Do you have trouble paying for medicines? No 08/05/2024 Paying Utility Bills Answer Date Record ed Do you have trouble paying your heating or elect ricity bill? No 08/05/2024 Transportation Answer Date Recorded Has the lack of transportati on kept you from medical appointments or from getting medications? No 08/05/2024 Digital Access Answer Date Recorded No 08/05/2024 Yes 08/05/2024 Do you have reliable internet access at home? Ye s 08/05/2024 Do you have a device (e.g., phone, tablet, computer) with a working camera? Yes 08/05/2024 Comments Unknown Sex and Gender Information Value Date Recorded Sex Assigned at Not on file Legal Sex Female 4:15 PM EDT Gender Identity Not on file Sexual Orientation Not on file documented as of this encounter Progress Notes * Chato Jackson - 09/03/2024 10:31 AM EDT 24-48 Hour No-Show Notice If caller not the patient: Name: Relationship: Cancel Appt Visit Type: FOLLOW UP VISIT Cancelation Reason: Personal Reasons Cancelation Detail: Insurance issues - current insurance not accepted by this office Was Appt Reschedule: No Why Reschedule was not performed (W/Detail) Pt will call back when insurance is sorted out, or willplan to sort out insurance then attend scheduled AWV next year Awareness: I have reiterated our late cancellation policy to the caller. Agent Action: > Reason for Call: NO SHOW > Comment: Enter Cancel Appt date > Route: Route to FD if the No-Show is a future date. > Route: [facility] SDV and Sick Visit No-Show, route to RN for rescheduling. Do not Call Center: Ensure the appt has been cancel from the future tab > Reiterate Scripting: Provide our late cancellation policy to the caller Required Scripting for Existing Patients: Thank you for notifying us about the cancellation. We will inform the provider. As a reminder, our policy requires at least 24 hours' notice for cancellations, as providers reserve time for your appointment, and short notice often makes it difficult to reschedule. You can cancel appointments anytime through your [facility]. We appreciate your understanding. Required Scripting for New Patients: Thank you for notifying us about the cancellation. We will inform the provider. Please be aware of our 48-hour cancellation policy for new patients. If you need to cancel or reschedule, we ask for at least 48 hours' notice. If you miss an appointment or cancel without sufficient notice, it will be marked as a No-Show appointment. We allow for two unforeseen circumstances under this policy. This policy ensures that our providers can manage their schedules effectively. Additionally, you can cancel appointments anytime through your [facility]. documented in this encounter Plan of Treatment Upcoming Encounters Date Type Department Care Team (Late st Contact Info) Description 09/11/2025 8:15 AM EDT Office Visit [facility] [address] [address] Delma Baez [address] [place] [address], [address] [place] [address] [email or web address] documented as of this encounter Visit Diagnoses Not on filedocumented in this encounter Care Teams Social Work Associate Relationship Specialty Start Date End Date Delma Baez [address] [place] [address], [address] [place] [address] [email or web address] PCP - General Family Medicine 08/05/24 documented as of this encounter Additional Source Comments The information contained in this document represents components of the legal health record. It is not the complete legal health record.[facility]
== END 2024-09-25 12:26 | disposition home or self-care (01) ==
LOC: HO.HOS 11:06
PROVIDERS: Visit Provider Physician Assistant
DX: Z47.89 Encounter for other orthopedic aftercare (principal); Z87.81 Personal history of (healed) traumatic fracture
CPT/HCPCS: 99213

== ENCOUNTER → 2024-09-25 11:14 | Outpatient (BNV) | payer OTHER, SELFPAY | PROVIDERS: Visit Provider Radiology Diagnostic Radiology | DX: S82.54XG Nondisplaced fracture of medial malleolus of right tibia, subsequent encounter for closed fracture with delayed healing (principal) | CPT/HCPCS: 73610 ==

== ENCOUNTER 2024-11-21 09:31 | Outpatient (REF) | payer OTHER, SELFPAY ==
--- NOTE | ~2024-11-21 | XR_ITS ---
EXAMINATION: XR ANKLE 3 OR MORE VIEWS RIGHT HISTORY: M25.579 - Pain in unspecified ankle and joints of unspecified foot COMPARISON: Comparison is made with the prior examination dated 09/25/2024. FINDINGS: Three views of the right ankle are submitted. Osseous mineralization is normal. The patient is again noted to be status post internal fixation of a fracture of the distal fibula. The fracture line is not well visualized. A nondisplaced fracture of the medial malleolus is unchanged in appearance. The joint spaces are preserved. There is lateral soft tissue swelling. XR/XR ankle RT min 3V IMPRESSION: Internal fixation of the distal fibula. Nondisplaced fracture of the medial malleolus without change. Electronically signed by: Matthew Rayo MD 11/21/2024 10:29 AM EDT
--- OUTSIDE RECORDS SUMMARY | 2024-11-24 09:36 | XMS_ITS | Encounter Summary ---
Author Organization [facility] Address [address] [facility] [address] [place] [address] Phone Care Team Providers Care Chalk Cutter Name Role Phone Delma Baez Primary Care Provider [phone] Reason for Visit * Reason Onset Date Comments No Show 09/03/2024 8:00 appt tomorr ow Encounter Details Date Type Department Care Team (Late st Contact Info) Description 09/03/2024 Telephone [facility] [address] [address] Delma Baez 22 [facility], [address] [place] [address] [email or web address] No Show (8:00 appt tomorrow) Social History [...] high school, GED, job training, learning the [place] Islander language, technical skills, or developing parenting skills)? [...] can cancel appointments anytime through your Patient Union. We appreciate your understanding. Required Scripting for [...] can cancel appointments anytime through your Patient Union. documented in this encounter Plan of Treatment Upcoming Encounters Date Type Department Care Team (Late st Contact Info) Description 09/11/2025 8:15 AM EDT Office Visit [facility] [address] [address] Delma Baez [address] [place] [address], [address] [place] [address] [email or web address] documented as of this encounter Visit Diagnoses Not on filedocumented in this encounter Care Teams Chalk Cutter Relationship Specialty Start Date End Date Delma Baez [address] [place] [address], [address] [place] [address] PCP - General Family Medicine 08/05/24 documented as of this encounter Additional Source Comments The information contained in this document represents components of the legal health record. It is not the complete legal health record.[facility]
--- OUTSIDE RECORDS SUMMARY | 2024-11-24 09:36 | XMS_ITS | Clinical Summary ---
Author Organization [facility] Address [address] [facility] [address] [place] [phone] Phone Care Team Providers Care Public Information Coordinator Name Role Phone Delma Baez Primary Care Provider Allergies Active Allergy Reactions Criticality Noted Date Comments Animal Dander Sneezing Medium 08/05/2024 Medications omeprazole (PRILOSEC) 20 MG capsuleIndication s:Gastroesophagea l reflux disease without esophagitis Take 20 mg by mouth as needed (heartburn) . Active albuterol 90 mcg/actuation inhalerIndication s:Mild intermittent asthma without complication Inhale 2 puffs into the lungs every 6 (six) hours as needed for wheezing. 18 g 3 08/05/2024 08/06/19 26 Active Active Problems Problem Noted Date Diagnosed Date Gastroesophageal reflux disease without esophagi tis 08/05/2024 Assessment & Plan (08/05/2024 3:18 PM EDT): Takes omprazole 20mg as needed, usually if she knows she will be eating a heavy meal. Eczema 08/05/2024 Assessment & Plan (08/05/2024 3:19 PM EDT): Intermittently severe. Uses hydrocortisone cream. Does not see dermatology. Mild intermittent asthma without complication Assessment & Plan (08/05/2024 3:20 PM EDT): Uses albuterol as needed which is rare. Never been hospitalized. Closed fracture of right ankle with routine heal ing 08/05/2024 Assessment & Plan (08/05/2024 3:22 PM EDT): Broke her R ankle in March at work. Had surgery March 28. Still out on workman's comp. Sees orthopedics through [facility]. Elevated blood pressure read ing in office with diagnosis of hypertension 08/05/2024 Assessment & Plan (08/05/2024 3:31 PM EDT): Reports blood pressure has been elevated in the past. Will take home ambulatory readings and follow up in 1 month. Encounters Date Type Department Care Team Description 09/03/2024 Telephone [facility] [place] [address] Delma Baez No Show (8:00 appt tomorrow) from Last 3 Months Family History Medical History Relation Comments Anxiety disorder Daughter Depression Daughter Overweight Daughter Cancer Father Heart attack Maternal Grandfather Heart attack Maternal Grandmother Lung cancer Mother Smoker No Known Problems Paternal Grandfather Heart disease Paternal Grandmother ADD / ADHD Sister Anxiety disorder Sister Depression Sister Hypertension Sister Overweight Son Relation Status Comments Daughter Alive Father Maternal Grandfather Maternal Grandmother (Age 64) Mother (Age 64) Paternal Grandfather Unknown Paternal Grandmother Sister Alive Son Alive Social History Tobacco Use Types Packs/Day Years Used Date Smoking Tobacco: Never Smokeless Tobacco: Never Tobacco Cessation:Counseling Given: Not Answered Alcohol Use Standard Drinks/Week Comments Yes 0 [...] high school, GED, job training, learning the Burmese language, technical skills, or developing parenting skills)? [...] on file Sexual Orientation Not on file Last Filed Vital Signs Vital Sign Reading Time Taken Comments Blood Pressure 141/91 08/05/2024 3:13 PM EDT aut omatic Pulse 91 08/05/2024 3:05 PM EDT Temperature 35.2 C (95.4 F) 08/05/2024 3:05 PM EDT Respiratory Rate - - Oxygen Saturation 96% 08/05/2024 3:05 PM EDT Inhaled Oxygen Concentration - - Weight 110.4 kg (243 lb 6.4 oz) 08/05/2024 3:05 PM EDT Height 156 cm (5' 1.42 ) 08/05/2024 3:05 PM EDT Body Mass Index 45.37 08/05/2024 3:05 PM EDT Plan of Treatment Upcoming Encounters Date Type Department Care Team (Late st Contact Info) Description 09/11/2025 8:15 AM EDT Office Visit [facility] [place] [address] Delma Baez 22 [facility], [address] [place] [address] [email or web address] Health Maintenance Due Date Last Done Comments Adult Td,Tdap Booster 1963 DEPRESSION SCREENING 1975 PNEUMOCOCCAL VACCINES (50+ years) (1 of 2 - PCV) 11/19/1982 PAP SMEAR 11/19/1984 MAMMOGRAM 2003 COLOGUARD 11/19/2008 COLONOSCOPY 11/19/2008 COLORECTAL CANCER SCREENING 11/19/2008 FIT TEST 11/19/2008 FOBT 11/19/2008 SIGMOIDOSCOPY 11/19/2008 VIRTUAL COLONOSCOPY 11/19/2008 RSV VACCINE (1 - Risk 50-74 years 1-dose series) 11/19/2013 ZOSTER VACCINES (1 of 2) 11/19/2013 INFLUENZA VACCINE (#1) 2024 COVID-19 VACCINE (3 - 2024-2 6 season) 2024 01/28/2021, 12/31/2020 BLOOD PRESSURE 02/04/2025 08/05/2024 SCREENING FOR DIABETES 08/08/2027 , 08/07/2024 LIPID PANEL 08/07/2029 08/07/2024 SMOKING STATUS SCREENING (On ce After 26 Yrs) Completed 08/05/2024 HEPATITIS C SCREENING Completed 08/07/2024 HIV ONE-TIME SCREENING (18-6 5 YEARS) Completed 08/07/2024 HEPATITIS A VACCINES Aged Out No long er eligible based on patient's age to complete this topic HIB VACCINES Aged Out No longer eligi ble based on patient's age to complete this topic MENINGOCOCCAL VACCINES (ACWY) Aged Out No longer eligible based on patient's age to complete this topic MENINGOCOCCAL VACCINES (B) Aged Out N o longer eligible based on patient's age to complete this topic Medical Devices Not on file Procedures Procedure Name Priority Date/Time Associated Diagnosis Comments LIPID PANEL Routine 08/07/2024 10:42 AM EDT Screening due HEPATITIS C ANTIBODY, QUALITATIVE Routine 08/07/2024 10:42 AM EDT Need for hepatitis C screening test from Last 3 Months or Most Recently Relevant to Health Maintenance Results * Hepatitis C antibody, qualitative (08/07/2024 10:42 AM EDT) HCV NON-REACTIV E NON-REACTI VE [facility] Blood 08/07/2024 10:4 2 AM EDT 08/07/2024 10:45 AM EDT Mc4 LAB BLOOD ORDERABLES Final Result Performing Organization Address City/[facility]/ZIP Co de Phone Number [address] [address] * (ABNORMAL) Lipid panel (08/07/2024 10:42 AM EDT) HDL 44 mg/dL [facility] Comment: Interpretation <40 mg/dL: Low HDL cholesterol (major risk factor for CHD) Greater than or equal to 60 mg/dL: High HDL cholesterol ( negative risk factor for CHD) HDL - cholesterol is affected by a number of factors, e.g. smoking, excerise, hormones, sex and age. CHOLESTEROL 199 0 - 240 mg/dL [facility] TRIGLYCERIDES 120 30 - 160 mg/dL [facility] LDL 131(H) 50 - 129 mg/dL [facility] Comment: LDL levels in terms of risk for coronary heart disease: <100 mg/dL: Optimal 100-129 mg/dL: Near or above optimal 130-159 mg/dL: Borderline high 160-189 mg/dL: High >190 mg/dL: Very High CARDIAC RISK RATIO 4.5(H) 3.3 - 4.4 C [facility] Blood 08/07/2024 10:4 2 AM EDT 08/07/2024 10:51 AM EDT Mc4 LAB BLOOD ORDERABLES Final Result Performing Organization Address City/[facility]/ZIP Co de Phone Number [address] [address] from Last 3 Months or Most Recently Relevant to Health Maintenance Insurance [employer] PARTNERSHIP ACO PARTNERSHIP ACO PARTNERSHIP ACO PARTNERSHIP ACO ACO [employer]NERSHIP ACO Care Teams Public Information Coordinator Relationship Specialty Start Date End Date Delma Baez [address] [place] [address], [address] [place] [address] [email or web address] PCP - General Family Medicine 08/05/24 Additional Source Comments The information contained in this document represents components of the legal health record. It is not the complete legal health record.[facility]
== END 2024-11-21 09:32 | disposition home or self-care (01) ==
LOC: HO.HOSX 09:31
PROVIDERS: Visit Provider Physician Assistant
DX: Z47.89 Encounter for other orthopedic aftercare (principal); M25.571 Pain in right ankle and joints of right foot; Z98.890 Other specified postprocedural states; Z87.891 Personal history of nicotine dependence
CPT/HCPCS: 73610; 99212

== ENCOUNTER 2024-11-21 10:18 | Outpatient (AMB) | payer OTHER, SELFPAY ==
--- NOTE | 2024-11-21 10:28 | MHC.OFFVIS ---
Vital Signs 11/21/24 10:34 Height 5 ft 3 in Intake Visit Reasons: OV-right Ankle ORIF 03/28/24 Intake Note: Luis is a 59 year old female who presents today with a cane for a follow up of her right ankle ORIF done on 03/28/24 by Milton Moe. At her last visit she was advised to finish physical therapy. Patient reports they canceled physical therapy due to not helping her. She states that she is still having pain on the lateral aspect. Patient tried driving and she was having a difficult time pushing on the break and pushing on the gas. Tasks for work: Cleaning moping, vacuuming, squatting, packing wood Accompanied by: Spouse Allergies No Known Allergies Allergy (Verified 11/21/24 10:33) HPI HPI OV-right Ankle ORIF 03/28/24: Details: Ms. Jansen this is a 59-year-old female who presents to the office today for routine follow-up status post right ankle ORIF performed on 03/28/[address] Moe. Patient reports that since her last appointment the worker's comp denied any further physical therapy sessions. She continues to have pain, stiffness and difficulty with ambulation and ADLs. She is continuing to use a cane to assist with ambulation. No additional complaints. REPLACED BY [facility] Medical History (Updated 04/04/24 @ 12:21 by Amy Miranda PA-C) No pertinent past medical history Surgical History (Updated 04/04/24 @ 12:21 by Amy Miranda PA-C) Previous section Social History Household Members Other:: S.O. 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 Incision sites are completely healed and well approximated. No surrounding erythema or drainage. No signs of infection. Continued tenderness to palpation over the lateral plate. Patient is able to dorsiflex and plantar flex with stiffness and pain. She is able to pronate and supination with stiffness and pain along the lateral malleolus.. Sensation is intact. Pedal pulse intact. Psych Appearance: grossly normal Mental Status: mental status grossly normal Attitude: cooperative Assessment & Plan Assessment & Plan (1) Status post ORIF of fracture of ankle: Code(s): Z98.890 - Other specified postprocedural states; Z87.81 - Personal history of (healed) traumatic fracture Category: Surgical Plan Ms. Jansen this is a 59-year-old female who presents to the office today for routine follow-up status post right ankle ORIF performed on 03/28/[address] Moe. Patient reports that since her last appointment the worker's comp denied any further physical therapy sessions. She continues to have pain, stiffness and difficulty with ambulation and ADLs. She is continuing to use a cane to assist with ambulation. No additional complaints. While in the office today, I have reordered physical therapy in hopes that worker's compensation will accommodate as this is in the best interest of the patient and her recovery and plan. An order for her to return back to work patient needs to have full function of the right foot and ankle. At this time she has developed considerable postoperative stiffness limiting her function. Additionally, at our last appointment Dr. Moe was available to see the patient with me and we did discuss the possibility of removing the lateral plate. I will have the patient follow up with Dr. Moe in 4 weeks for evaluation and consideration of orthopedic hardware removal, sooner if needed. X-rays of the right ankle which were obtained while in the office today and were reviewed by me, Amy Miranda PA-C, revealed right ankle intact orthopedic hardware. Orders: Orders XR ankle RT min 3V Today M25.579 - Pain in unspecified ankle and joints of unspecified foot PT Evaluation and Treatment Today S82.54XA - Nondisplaced fracture of medial malleolus of right tibia, initial encounter for closed fracture, S82.831A - Other fracture of upper and lower end of right fibula, initial encounter for closed fracture, Z87.81 - Personal history of (healed) traumatic fracture, Z98.890 - Other specified postprocedural states Coding Level of Care Code Est Pt Level 3 (11103) Diagnoses Status post ORIF of fracture of ankle Z98.890; Z87.81
== END 2024-11-21 10:51 | disposition home or self-care (01) ==
LOC: HO.HOS 10:19
PROVIDERS: Visit Provider Physician Assistant
DX: Z47.89 Encounter for other orthopedic aftercare (principal); Z87.81 Personal history of (healed) traumatic fracture
CPT/HCPCS: 99213

== ENCOUNTER → 2024-11-21 10:20 | Outpatient (BNV) | payer OTHER, SELFPAY | PROVIDERS: Visit Provider Radiology Diagnostic Radiology | DX: M25.571 Pain in right ankle and joints of right foot (principal) | CPT/HCPCS: 73610 ==

== ENCOUNTER 2024-12-15 10:33 | Outpatient (AMB) | payer OTHER, SELFPAY ==
--- NOTE | 2024-12-15 10:34 | MHC.OFFVIS ---
Vital Signs 12/15/24 10:35 Height 5 ft 3 in Intake Visit Reasons: OV-right Ankle ORIF 03/28/24 - Discuss DAVID Intake Note: Luis alcaraz is a 59 year old female who presents today for a follow up visit about 8 months s/p Right Ankle ORIF 03/28/24. This is a Work Related injury from 03/17/24. WC stopped covering physical therapy for her, at her last visit Amy ordered a new course of PT in hopes that it would be covered as she needs full function in order to RTW. Today she presents to discuss possible hardware removal. Allergies No Known Allergies Allergy (Verified 12/15/24 10:35) HPI HPI OV-right Ankle ORIF 03/28/24 - Discuss DAVID: Details: Luis alcaraz is a 59 year old female who presents today for a follow up visit about 8 months s/p Right Ankle ORIF 03/28/24. This is a Work Related injury from 03/17/24. WC stopped covering physical therapy for her, at her last visit Amy ordered a new course of PT in hopes that it would be covered as she needs full function in order to RTW. Today she presents to discuss possible hardware removal. She describes difficulty with all activities. She has difficulty with stairs and extremely poor ambulatory tolerance. She denies fevers and chills. She is wearing street shoes but using a cane for ambulating COUNT INCLUDES THE [facility] Medical History (Updated 04/04/24 @ 12:21 by Amy Miranda PA-C) No pertinent past medical history Surgical History (Updated 04/04/24 @ 12:21 by mAy Miranda PA-C) Previous section Social History Household Members Other:: S.O. children Patient Tobacco Use Status: Never used Tobacco Current occupational status: employed Current occupation: Preventive Maintenance Engineer Physical Exam Exam Exam: Right ankle lateral and medial incisions clean dry and intact. She has global tenderness about the ankle and especially around the incisions with no obvious prominent hardware. Subjectively diminished sensation around the dorsum of the foot and not including great toe and she is firing EHL/tib ant/gastrocsoleus 2+ dorsalis pedis pulse. Assessment & Plan Assessment & Plan (1) Status post ORIF of fracture of ankle: Code(s): Z98.890 - Other specified postprocedural states; Z87.81 - Personal history of (healed) traumatic fracture Category: Surgical Plan: 59-year-old 8-1/2 months status post ORIF right bimalleolar ankle fracture. Her range of motion is okay but her ambulatory tolerance is poor. I strongly recommend physical therapy. She needs help with gait training and stair Bulloch and distention and she can not work unless she gets more therapy. I ordered physical therapy and she should follow up in 2 months. Continue out of work status. Orders: Orders PT Evaluation and Treatment Today Z87.81 - Personal history of (healed) traumatic fracture, Z98.890 - Other specified postprocedural states Coding Level of Care Code Est Pt Level 3 (75712) Diagnoses Status post ORIF of fracture of ankle Z98.890; Z87.81
--- OUTSIDE RECORDS SUMMARY | 2024-12-15 12:49 | XMS_ITS | Clinical Summary ---
Author Organization [facility] Address [address] [facility] [address] [place] [address] Phone Care Team Providers Care Freelance Programmer/App Developer Name Role Phone Delma Baez Primary Care Provider [phone] Allergies Active Allergy Reactions Criticality Noted Date [...] out on workman's comp. Sees orthopedics through [facility]. Elevated blood pressure read ing in office with diagnosis of hypertension 08/05/2024 Assessment & Plan (08/05/2024 3:31 PM EDT): Reports blood pressure has been elevated in the past. Will take home ambulatory readings and follow up in 1 month. Family History Medical History Relation Comments Anxiety [...] high school, GED, job training, learning the Belgian language, technical skills, or developing parenting skills)? [...] your housing situation today? I have ginette luevano 08/05/2024 How many times have you move [...] 09/11/2025 8:15 AM EDT Office Visit [facility] [address] [place] [address] [place] [address] Delma Baez [address] [facility], [address] [place] [address] [email or web address] Health Maintenance Due Date Last Done [...] AM EDT) HCV NON-REACTIV E NON-REACTI VE [facility] Blood 08/07/2024 10:4 2 AM EDT 08/07/2024 10:45 AM EDT [email or web address] LAB BLOOD BKR ORDERABLES Fi nal Result Performing Organization Address [facility]/ZIP Co de Phone Number [address] [address] * (ABNORMAL) Lipid panel (08/07/2024 10:42 AM EDT) HDL 44 mg/dL [facility] Comment: Interpretation <40 mg/dL: Low HDL cholesterol (major risk factor for CHD) Greater than or equal to 60 mg/dL: High HDL cholesterol ( negative risk factor for CHD) HDL - cholesterol is affected by a number of factors, e.g. smoking, excerise, hormones, sex and age. CHOLESTEROL 199 0 - 240 mg/dL [facility] TRIGLYCERIDES 120 30 - 160 mg/dL [facility] LDL 131(H) 50 - 129 mg/dL [facility] Comment: LDL levels in terms of risk for coronary heart disease: <100 mg/dL: Optimal 100-129 mg/dL: Near or above optimal 130-159 mg/dL: Borderline high 160-189 mg/dL: High >190 mg/dL: Very High CARDIAC RISK RATIO 4.5(H) 3.3 - 4.4 C [facility] Blood 08/07/2024 10:4 2 AM EDT 08/07/2024 10:51 AM EDT [email or web address] LAB BLOOD BKR ORDERABLES Fi nal Result Performing Organization Address City/[facility]/ZIP Co de Phone Number [address] [address] from Last 3 Months or Most Recently Relevant to Health Maintenance Insurance [facility] HEALTHY PARTNERSHIP ACO PARTNERSHIP ACO PARTNERSHIP ACO HEALTHY PARTNERSHIP ACO [employer]NERSH[employer] ACO PARTNERSHIP ACO Care Teams Freelance Programmer/App Developer Relationship Specialty Start Date End Date Delma Baez [address] [place] [address], [address] [place] [address] PCP - General Family Medicine 08/05/24 Additional Source Comments The information contained in this document represents components of the legal health record. It is not the complete legal health record.[facility]
== END 2024-12-15 11:08 | disposition home or self-care (01) ==
LOC: HO.HOS 10:33
PROVIDERS: Visit Provider Orthopaedic Surgery
DX: Z87.81 Personal history of (healed) traumatic fracture (principal); Z98.890 Other specified postprocedural states
CPT/HCPCS: 99213

== ENCOUNTER → 2024-12-15 10:33 | Outpatient (BNVA) | payer OTHER, SELFPAY | PROVIDERS: Visit Provider Orthopaedic Surgery | DX: S82.841D Displaced bimalleolar fracture of right lower leg, subsequent encounter for closed fracture with routine healing (principal); X58.XXXD Exposure to other specified factors, subsequent encounter; Z87.81 Personal history of (healed) traumatic fracture; Z98.890 Other specified postprocedural states | CPT/HCPCS: 99212 ==